=== PATIENT | female | born 1945 | race Caucasian/White ===

== ENCOUNTER → 2021-09-03 | Outpatient (CLI) | payer MEDICARE, MEDICAID ==
--- NOTE | 2021-09-03 13:08 | Diagnostic Imaging Report ---
HISTORY: Bilateral knee pain TECHNIQUE: 4 views of the bilateral knees COMPARISON: None FINDINGS: No acute fracture or dislocation is seen in the right knee. There are severe degenerative changes in the lateral compartment and moderate degenerative changes in the patellofemoral compartment with mild degenerative change in the medial compartment. There is a small joint effusion. There is calcific atherosclerosis. No acute fracture or dislocation is seen in the left knee. Alignment appears normal. There is a moderate left knee joint effusion. There are severe degenerative changes in the lateral compartment and mild degenerative changes in the patellofemoral and medial compartments. There is calcific atherosclerosis. IMPRESSION: 1. 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 2. Bilateral knee joint effusions, left greater than right. Dictated by: Dictated on workstation # [id number]
== END ==
LOC: ORTHO 10:25
PROVIDERS: ATTEND Orthopaedic Surgery
DX: M17.0 Bilateral primary osteoarthritis of knee (principal)
CPT/HCPCS: 73564; G0463; 99213

== ENCOUNTER → 2022-01-05 | Outpatient (CLI) | payer MEDICARE, MEDICAID | LOC: ORTHO 13:50 | PROVIDERS: ATTEND Orthopaedic Surgery | DX: M17.0 Bilateral primary osteoarthritis of knee (principal) | CPT/HCPCS: 99213 ==

== ENCOUNTER → 2022-04-27 | Outpatient (CLI) | payer MEDICARE, MEDICAID | LOC: ORTHO 14:15 | PROVIDERS: ATTEND Orthopaedic Surgery | DX: S40.011D Contusion of right shoulder, subsequent encounter (principal); X58.XXXD Exposure to other specified factors, subsequent encounter | CPT/HCPCS: 99213 ==

== ENCOUNTER → 2022-07-06 | Outpatient (CLI) | payer MEDICARE, MEDICAID ==
--- NOTE | 2022-07-06 11:51 | Diagnostic Imaging Report ---
EXAMINATION: Right ankle radiographs, 3 views. COMPARISON: None. HISTORY: 77-year-old female, right ankle pain. FINDINGS: There is a calcaneal heel spur. There is no cortical or aggressive bone destruction. There is no abnormal alignment of the ankle mortise. There is no acute fracture. There is mild soft tissue swelling adjacent to the medial aspect of the distal tibial metadiaphysis. IMPRESSION: 1. No acute bony abnormality of the right ankle. 2. Calcaneal heel spur. 3. Nonspecific soft tissue swelling adjacent to the medial aspect of the distal tibial metadiaphysis. Dictated by: Dictated on workstation # [id number]
== END ==
LOC: ORTHO 10:37
PROVIDERS: ATTEND Orthopaedic Surgery
DX: S93.401A Sprain of unspecified ligament of right ankle, initial encounter (principal); X58.XXXA Exposure to other specified factors, initial encounter
CPT/HCPCS: 73610; G0463; 99213